=== PATIENT | female | born 1995 | race Caucasian/White ===

== ENCOUNTER 2018-12-03 18:26 | Emergency (ER) | payer OTHER | END 2018-12-03 20:34 | disposition home or self-care (01) | LOC: FTE 18:26 | DX: R50.9 Fever, unspecified (principal); R51 Headache; R05 Cough; R09.81 Nasal congestion; R09.89 Other specified symptoms and signs involving the circulatory and respiratory systems; R11.0 Nausea | CPT/HCPCS: 99283 ==